=== PATIENT | female | born 1990 | race Caucasian/White ===

== ENCOUNTER 2023-05-20 16:40 | Outpatient (CLI) | payer BC, SELFPAY ==
[2023-05-20 17:04] VITALS: BP 125/78; PULSE 83; TEMP 37.6; O2SAT 97
[2023-05-20 17:06] VITALS: BMI 25.2
[2023-05-20] MEDS: Lactated Ringers 1,000 ML 999 ML IV (18:04)
[2023-05-20 18:23] LABS: Hematocrit 31.6 % (37-47); Hemoglobin 11.2 g/dL (12.0-15.0); Mean Corp Hgb Conc 35.4 g/dL (32-36); Mean Corpuscular Hgb 31.4 pg (27.0-32.0); Mean Corpuscular Volume 88.5 fL (81-99); Mean Platelet Vol. 11.2 fl (6.2-12.0); Platelet Count 152 K/mm3 (150-450); RBC Distribution Width CV 12.3 % (11.6-14.6); RBC Distribution Width SD 39.7 fl (35.1-43.9); Red Blood Count 3.57 M/mm3 (4.2-5.4); White Blood Count 11.2 K/mm3 (4.4-11.0)
[2023-05-20] MEDS: Lactated Ringers 1,000 ML 125 ML IV (19:08)
[2023-05-20 19:42] VITALS: PULSE 85; O2SAT 97
[2023-05-20 19:43] VITALS: BP 113/73; PULSE 86; TEMP 36.8; O2SAT 97
--- NOTE | 2023-05-20 19:45 | HP.PCM.OB_ITS ---
HPI - General General Date of Admission: 05/20/23 Date of Service: 05/20/23 Chief Complaint: Trauma in HPI Narrative RICARDO CASTANON, is a 32 F who presents at 36+ weeks gestation after falling on the ice at 4 PM today while walking her dog. She denies any vaginal bleeding. She indicates that she initially fell to her knee and then to her side with minimal trauma to the abdomen. She denies any bruising or bl eeding and indicates that she is not sore this evening after her fall. She called her provider in [place], [place], and she was instructed to proceed to the nearest labor and delivery for evaluation. Namita indicates that her has been without incident. She had an ultrasound around 20 weeks gestation which was normal, does not smoke or drink alcohol or use illicit drugs, and does not have diabetes. Her blood type is O-. Patient denies any leaking of fluid. Maternal Data Information Final STUART: 06/12/23 Final STUART Source: [place] <20 weeks Gestational age: 36+ weeks [facility] Home Medications vits no.130-ferrous fum 27 mg iron-folic acid 800 mcg tablet ( Vitamin) tab 05/20/23 [History Last Taken Unknown] Allergy/AdvReac Type Severity Reaction Status Date / Time No Known Allergies Allergy Verified 05/20/23 17:08 NST FHR Rate Baby A NST Reactive:: Yes and Appropriate for gestational age Uterine Activity:: Occasional contraction versus uterine irritability noted. Assessment Assessment Detail: 36+ week intrauterine status post mild to moderate fall. Some areas of possible deceleration so will monitor overnight on continuous monitor with likely discharge in the morning. Bedside ultrasound shows an incidental biophysical profile of 10 out of 10, normal fluid, and no evidence of abruption. Placenta is fundal. Baby appears appropriate size for gestational age and cephalic occiput anterior presentation. Patient has been given IV fluids and baby has become more active. Maternal hemoglobin has been drawn as has a type and screen and CBC. We discussed RhoGAM and patient is considering this given that her 's blood type is B- . We have discussed placenta abruption at length and I recommended she see her [facility] physician on Monday for nonstress test and to do movement checks 3 times daily until then. She is to immediately return if she has any bleeding or decreased movement. Vital Signs Vital Signs Vital Signs: 05/20/23 17:04 05/20/23 17:04 05/20/23 17:04 Temperature Temperature Source Pulse Rate 83 Blood Pressure 125/78 H BP Systolic 125 BP Diastolic 78 Pulse Ox 97 05/20/23 17:04 05/20/23 17:04 05/20/23 19:42 Temperature 99.6 F H Temperature Source Temporal Pulse Rate 85 Blood Pressure BP Systolic BP Diastolic Pulse Ox 05/20/23 19:42 05/20/23 19:43 05/20/23 19:43 Temperature Temperature Source Pulse Rate 86 Blood Pressure 113/73 BP Systolic 113 BP Diastolic 73 Pulse Ox 97 Weight Weight: 129 lb 6 oz Body Mass Index (BMI) 25.2 Physical Exam Narrative Afebrile, vital signs stable. Labs Labs Labs: Blood Type O NEGATIVE Antibody Screen NEGATIVE Hct 31.6 % (37-47) L Hgb 11.2 g/dL (12.0-15.0) L Assessment & Plan (1) Trauma during : PLAN: 36+ week intrauterine status post mild to moderate fall. Will monitor overnight and discharge to home if heart tones remain reassuring. Patient is to follow-up with her [facility] in [place] the day after discharge for nonstress test. Will check cervix for dilation before discharge. Patient is thin with contractions noted on monitor but not felt by the patient.
[2023-05-21 00:03] VITALS: BP 105/70; PULSE 90; PULSE 96; TEMP 36.1; O2SAT 98
[2023-05-21 04:19] VITALS: BP 101/69; PULSE 79; PULSE 80; TEMP 36.2; O2SAT 98
[2023-05-21 07:12] VITALS: BP 108/74; PULSE 74; PULSE 75; TEMP 36.4; O2SAT 99
--- NOTE | 2023-05-21 08:15 | PN.OBGYN_ITS ---
Subjective Subjective Patient denies any vaginal bleeding. Reactive heart tones during the entire night with no decelerations. Some contractions noted on monitor but not felt by the patient. Objective Data Objective Data Vital Signs: Vital Signs Temp Pulse BP Pulse Ox 97.5 F L 74 108/74 99 05/21/23 07:12 05/21/23 07:12 05/21/23 07:12 05/21/23 07:12 Weight: 129 lb 6 oz Body Mass Index (BMI) 25.2 Intake & Output: Intake and Output for Last 24 Hours 05/19/23 05/20/23 05/21/23 23:59 23:59 23:59 Intake Total 1308.33 / 1308.33 Output Total 201 / 201 Balance 1107.33 / 1107.33 Lab / Micro Data 05/20/23 17:55 Labs: Laboratory Results - last 24 hr 05/20/23 17:55: WBC 11.2 H, RBC 3.57 L, Hgb 11.2 L, Hct 31.6 L, MCV 88.5, MCH 31.4, MCHC 35.4, RDW Std Deviation 39.7, RDW Coeff of Lory 12.3, Plt Count 152, MPV 11.2, Kleihauer-Betke F Hgb Cancelled, Blood Type O NEGATIVE, Antibody Screen NEGATIVE, Screen NEGATIVE, Baby's Blood Type TNP, Baby's SARY TNP Assessment & Plan (1) Trauma during : PLAN: Doing well after mild fall and monitoring overnight. Will discharge to home with routine instructions. Patient to follow-up with her obstetrical pr ovider in [place] for NST tomorrow. Continue movement counts as instructed. To call or proceed to nearest ER with any bleeding or decreased movement.
== END 2023-05-21 08:47 | disposition home or self-care (01) ==
LOC: WPOUT 16:59 → WP 16:59
PROVIDERS: Referring Provider Obstetrics & Gynecology; Visit Provider Obstetrics & Gynecology
DX: O71.9 Obstetric trauma, unspecified (principal); Z3A.36 36 weeks gestation of pregnancy; W01.198A Fall on same level from slipping, tripping and stumbling with subsequent striking against other object, initial encounter; Y93.K1 Activity, walking an animal
CPT/HCPCS: 96360; 96361; 36415; 59025; 59050; 76815; 85027; 85461; 86850; 86900; 86901; 99221; J7120; G0378